=== PATIENT | female | born 1995 | race Caucasian/White ===

== ENCOUNTER 2020-01-17 18:52 | Emergency (ER) | payer MEDICAID ==
[~2020-01-17] VITALS: Ht 167.6 cm; Wt 68.0 kg
[2020-01-17 20:07] LABS: BASOPHILS % 0.5 % (0.0-2.0); EOSINOPHILS % 0.8 % (0.0-5.0); HEMATOCRIT. 30.2 % (36.0-48.0); HEMOGLOBIN. 10.4 g/dL (12.0-16.0); LYMPHOCYTES % 27.7 % (20.0-50.0); MEAN CORPUSCULAR VOLUME 93.2 fL (81.0-99.0); MEAN PLATELET VOLUME 7.7 fl (7.4-10.4); MONOCYTES % 11.5 % (2.0-8.0); NEUTROPHILS % 59.5 % (40.0-76.0); PLATELET 339 x1000/uL (130-400); RED BLOOD CELL COUNT 3.24 mill/uL (4.2-5.4); RED CELL DISTRIBUTION WIDTH 13.4 % (11.6-14.6)
[2020-01-17 20:10] LABS: CHLORIDE 106 mEq/L (98-107)
[2020-01-17 20:14] LABS: ETHANOL BLOOD < 10 mg/dL
[2020-01-18] MEDS ORDERED: ACETAMINOPHEN 325MG TABLET PO ONE (04:15)
[2020-01-18 06:55] VITALS: BP 131/75
== END 2020-01-18 10:33 | disposition home or self-care (01) ==
LOC: ER 18:52
DX: O99.343 Other mental disorders complicating pregnancy, third trimester (principal); O99.333 Smoking (tobacco) complicating pregnancy, third trimester; O26.893 Other specified pregnancy related conditions, third trimester; R40.4 Transient alteration of awareness; F20.9 Schizophrenia, unspecified; F31.9 Bipolar disorder, unspecified; Z3A.30 30 weeks gestation of pregnancy
CPT/HCPCS: 36415; 76805; 80053; 80307; 80320; 80329; 82962; 85025; 99285; G0480

== ENCOUNTER 2020-02-03 10:56 | Observation (INO) | payer MEDICAID ==
[~2020-02-03] VITALS: Ht 160 cm; Wt 68.0 kg
[2020-02-03] MEDS ORDERED: LACTATED RINGERS 1,000 ML IV SCH (11:41)
[2020-02-03 12:37] LABS: CLARITY URINE CLOUDY (CLEAR); COLOR URINE YELLOW (YELLOW); KETONES URINE NEGATIVE (NEGATIVE); LEUKOCYTE ESTERASE URINE 2+ (NEGATIVE); NITRITE URINE NEGATIVE (NEGATIVE); OCCULT BLOOD URINE NEGATIVE (NEGATIVE); PROTEIN URINE NEGATIVE (NEGATIVE); SPECIFIC GRAVITY URINE 1.007 (1.005-1.030); UROBILINOGEN URINE 0.2 E.U./dL (0.2-1.0)
[2020-02-03] MEDS ORDERED: CEFAZOLIN 2,000 MG in DEXT 5% WATER 100 ML IV NR (14:15)
[2020-02-03 14:44] LABS: *AMPHETAMINES SCREEN URINE NEGATIVE (NEGATIVE); *BARBITURATES SCREEN URINE NEGATIVE (NEGATIVE); *BENZODIAZEPINES SCREEN URINE NEGATIVE (NEGATIVE); *COCAINE SCREEN URINE NEGATIVE (NEGATIVE); METHADONE URINE SCREEN NEGATIVE (NEGATIVE); OPIATES URINE SCREEN NEGATIVE (NEGATIVE)
[2020-02-03 14:45] LABS: CANNABINOID URINE SCREEN NEGATIVE (NEGATIVE); PHENCYCLIDINE URINE SCREEN NEGATIVE (NEGATIVE)
== END 2020-02-03 15:58 | disposition home or self-care (01) ==
LOC: 8 EST LDRP 10:56
PROVIDERS: ADMIT Obstetrics & Gynecology; ATTEND Obstetrics & Gynecology
DX: O26.893 Other specified pregnancy related conditions, third trimester (principal); R10.30 Lower abdominal pain, unspecified; Z3A.33 33 weeks gestation of pregnancy
CPT/HCPCS: 76815; 76817; 80305; 81003; 87077; 87086; 87186; 96365; 99281; G0378; J0690; J7060; 96360; 96361

== ENCOUNTER 2020-02-10 15:53 | Observation (INO) | payer MEDICAID | END 2020-02-10 16:45 | disposition home or self-care (01) | LOC: 8 EST LDRP 15:53 | PROVIDERS: ADMIT Obstetrics & Gynecology; ATTEND Obstetrics & Gynecology | DX: O26.893 Other specified pregnancy related conditions, third trimester (principal); R10.9 Unspecified abdominal pain; O21.2 Late vomiting of pregnancy; Z3A.34 34 weeks gestation of pregnancy | CPT/HCPCS: 99281; G0378 ==

== ENCOUNTER 2020-03-15 00:17 | Inpatient (IN) | payer MEDICAID ==
[~2020-03-15] VITALS: Ht 162.6 cm; Wt 79.4 kg
[2020-03-15] MEDS ORDERED: RHO(D) IMMUNE GLOBULIN 300 MCG/SYR IM ONE (02:30)
[2020-03-15] MEDS ORDERED: METHYLERGONOVINE MALEATE 0.2 MG/ML IM PRN (02:30)
[2020-03-15] MEDS ORDERED: NALOXONE HCL 0.4 MG/ML 1ML VIAL IM PRN (02:30)
[2020-03-15] MEDS ORDERED: TERBUTALINE SULFATE 1MG/ML VIAL SUBCUT ONE (02:30)
[2020-03-15] MEDS: LACTATED RINGERS 1,000 ML IV SCH ×2 (02:47→21:22)
[2020-03-15 03:08] LABS: BASOPHILS % 0.5 % (0.0-2.0); EOSINOPHILS % 0.7 % (0.0-5.0); HEMOGLOBIN. 10.3 g/dL (12.0-16.0); LYMPHOCYTES % 37.3 % (20.0-50.0); MEAN CORPUSCULAR HEMOGLOBIN 29.5 pg (28.0-32.0); MEAN CORPUSCULAR VOLUME 88.6 fL (81.0-99.0); MEAN PLATELET VOLUME 9.3 fl (7.4-10.4); MONOCYTES % 9.7 % (2.0-8.0); NEUTROPHILS % 51.8 % (40.0-76.0); PLATELET 372 x1000/uL (130-400); RED CELL DISTRIBUTION WIDTH 14.8 % (11.6-14.6)
[2020-03-15 03:11] LABS: CLARITY URINE TURBID (CLEAR); COLOR URINE YELLOW (YELLOW); KETONES URINE TRACE (NEGATIVE); LEUKOCYTE ESTERASE URINE 3+ (NEGATIVE); NITRITE URINE POSITIVE (NEGATIVE); OCCULT BLOOD URINE 3+ (NEGATIVE); PH URINE 5.5 (4.5-8.0); PROTEIN URINE TRACE (NEGATIVE); SPECIFIC GRAVITY URINE 1.015 (1.005-1.030)
[2020-03-15 03:25] LABS: *BENZODIAZEPINES SCREEN URINE NEGATIVE (NEGATIVE); *COCAINE SCREEN URINE NEGATIVE (NEGATIVE); METHADONE URINE SCREEN NEGATIVE (NEGATIVE); OPIATES URINE SCREEN NEGATIVE (NEGATIVE)
[2020-03-15 03:26] LABS: *BARBITURATES SCREEN URINE NEGATIVE (NEGATIVE); CANNABINOID URINE SCREEN NEGATIVE (NEGATIVE); PHENCYCLIDINE URINE SCREEN NEGATIVE (NEGATIVE)
[2020-03-15 03:28] LABS: *AMPHETAMINES SCREEN URINE PRESUMTIVE POSITIVE (NEGATIVE)
[2020-03-15 03:38] LABS: INR 0.9; PARTIAL THROMBOPLASTIN TIME 25.7 sec (23.4-31.0); PROTHROMBIN TIME 9.6 sec (9.6-11.0)
[2020-03-15 04:01] LABS: HEPATITIS B SURFACE ANTIGEN NEGATIVE
[2020-03-15] MEDS ORDERED: CITRIC ACID/SODIUM CITRATE SOLN 30ML UDC PO ONE (04:15)
[2020-03-15] MEDS ORDERED: DEXT 5%/LR + PITOCIN 20UNITS/L 1,000 ML IV SCH (06:09)
[2020-03-15] MEDS ORDERED: BUTORPHANOL TARTRATE 2 MG/ML VIAL IV PRN (06:15)
[2020-03-15] MEDS ORDERED: NALOXONE HCL 0.4 MG/ML 1ML VIAL IV PRN (06:15)
[2020-03-15] MEDS ORDERED: RHO(D) IMMUNE GLOBULIN 300 MCG/SYR IM PRN (06:15)
[2020-03-15] MEDS ORDERED: DIPHENHYDRAMINE 50MG/ML VIAL IV PRN (06:15)
[2020-03-15] MEDS ORDERED: DIPHENHYDRAMINE 25MG CAPSULE PO PRN (06:15)
[2020-03-15] MEDS ORDERED: ONDANSETRON HCL 4MG/2ML INJ IV PRN (06:15)
[2020-03-15] MEDS ORDERED: IBUPROFEN 400MG TABLET PO PRN (06:15)
[2020-03-15 09:00] VITALS: BP 117/64
[2020-03-15 10:00] VITALS: BP 115/55
[2020-03-15] MEDS ORDERED: LORAZEPAM 2MG/ML CPJ IV NR (13:30)
[2020-03-15] MEDS ORDERED: MEASLES,MUMPS&RUBELLA VACCINE 1 VIAL SUBCUT ONE (18:15)
[2020-03-15 18:50] VITALS: BP 101/56
[2020-03-15] MEDS: KETOROLAC 30MG/ML VIAL IV SCH (18:54)
[2020-03-15 19:30] VITALS: BP 110/65
[2020-03-15] MEDS: DOCUSATE SODIUM 100MG CAPSULE PO SCH (21:12)
[2020-03-16] MEDS ORDERED: KETOROLAC 30MG/ML VIAL IV SCH (01:00)
[2020-03-16] MEDS: KETOROLAC 30MG/ML VIAL IV SCH (01:04)
[2020-03-16 04:00] VITALS: BP 106/68
[2020-03-16 06:42] LABS: BASOPHILS % 0.4 % (0.0-2.0); EOSINOPHILS % 0.8 % (0.0-5.0); HEMATOCRIT. 26.3 % (36.0-48.0); HEMOGLOBIN. 8.9 g/dL (12.0-16.0); MEAN CORPUSCULAR HEMOGLOBIN 29.8 pg (28.0-32.0); MEAN CORPUSCULAR VOLUME 88.4 fL (81.0-99.0); MEAN PLATELET VOLUME 9.1 fl (7.4-10.4); MONOCYTES % 7.6 % (2.0-8.0); NEUTROPHILS % 64.2 % (40.0-76.0); PLATELET 298 x1000/uL (130-400); RED BLOOD CELL COUNT 2.98 mill/uL (4.2-5.4); RED CELL DISTRIBUTION WIDTH 14.7 % (11.6-14.6)
[2020-03-16 08:00] VITALS: BP 112/69
[2020-03-16] MEDS: IBUPROFEN 800MG TABLET PO PRN ×2 (09:40→23:38)
[2020-03-16] MEDS: ACETAMINOPHEN WITH CODEINE 300/30MG TABLET PO PRN ×2 (11:44→18:59)
[2020-03-16 14:22] VITALS: BP 114/69
[2020-03-16] MEDS: DOCUSATE SODIUM 100MG CAPSULE PO SCH (20:59)
[2020-03-16] MEDS: NITROFURANTOIN 100MG M/M CAPSULE PO SCH (21:03)
[2020-03-16 22:00] VITALS: BP 112/65
[2020-03-17] MEDS: ACETAMINOPHEN WITH CODEINE 300/30MG TABLET PO PRN ×3 (03:46→18:52)
[2020-03-17 05:00] VITALS: BP 104/67
[2020-03-17 07:39] VITALS: BP 112/50
[2020-03-17] MEDS: IBUPROFEN 800MG TABLET PO PRN ×2 (08:20→15:26)
[2020-03-17] MEDS: NITROFURANTOIN 100MG M/M CAPSULE PO SCH ×2 (08:20→21:08)
[2020-03-17 16:10] VITALS: BP 109/73
[2020-03-17 20:00] VITALS: BP 108/62
[2020-03-17] MEDS: DOCUSATE SODIUM 100MG CAPSULE PO SCH (21:07)
[2020-03-18 00:16] VITALS: BP 123/73
[2020-03-18] MEDS: IBUPROFEN 800MG TABLET PO PRN (00:55)
[2020-03-18 04:00] VITALS: BP 112/76
[2020-03-18] MEDS ORDERED: NITR100C11 PO (06:29)
[2020-03-18] MEDS ORDERED: IBUP-2030 PO (06:29)
[2020-03-18 07:45] VITALS: BP 111/64
[2020-03-18] MEDS: ACETAMINOPHEN WITH CODEINE 300/30MG TABLET PO PRN (08:54)
[2020-03-18] MEDS: NITROFURANTOIN 100MG M/M CAPSULE PO SCH (08:54)
[2020-03-20 04:11] LABS: AMPHETAMINE CONF URINE Positive (.)
== END 2020-03-18 13:40 | disposition home or self-care (01) | DRG 540 ==
LOC: OBSVTOIN 00:17 → 8 EST LDRP 00:17 → INTOOBSV 00:17 → 8 EST A/PP 08:35 → 8EST 13:44
PROVIDERS: ADMIT Obstetrics & Gynecology; ATTEND Obstetrics & Gynecology
PROC: 10D00Z1 Extraction of Products of Conception, Low, Open Approach (ICD-10-PCS; principal; 2020-03-15)
DX: O99.344 Other mental disorders complicating childbirth (principal); O99.324 Drug use complicating childbirth; O99.314 Alcohol use complicating childbirth; O32.1XX0 Maternal care for breech presentation, not applicable or unspecified; F32.9 Major depressive disorder, single episode, unspecified; F41.9 Anxiety disorder, unspecified; F15.10 Other stimulant abuse, uncomplicated; O99.03 Anemia complicating the puerperium; Z37.0 Single live birth; Z3A.38 38 weeks gestation of pregnancy; Z72.89 Other problems related to lifestyle
CPT/HCPCS: 36415; 76815; 80305; 80307; 80359; 81003; 85025; 86592; 86703; 86762; 86850; 86900; 87077; 87186; 87340; 88307; 90707; 99281; G0378; J1885; J2060; J2590; J3105